=== PATIENT | female | born 1985 | race Caucasian/White ===

== ENCOUNTER 2019-11-07 07:47 | Emergency (ER) | payer MEDICAID ==
[~2019-11-07] VITALS: Ht 170.2 cm; Wt 73.3 kg
--- NOTE | 2019-11-07 08:11 | NUR ---
MANAGER ADMINISTRATIVE: PT TO ROOM FROM [facility]
--- NOTE | 2019-11-07 08:26 | NUR ---
THIS IS A 34 YO F W/ C/O SORE THROAT AND SWOLLEN NECK X2 DAYS. PT REPORTS "JUST NOT FEELING WELL FOR THE PAST 2 WEEKS" AND SORE THROAT HAS GOTTEN WORSE THE PAST 2 DAYS. DIFFICULTY SWALLOWING. DENIES SOB. PT CONVERSING IN FULL SENTENCES. VS STABLE. PT SITTING UP ON GURNEY W/ FAMILY AT BEDSIDE. CALL LIGHT IN REACH. DENIES FURTHER NEEDS AT THIS TIME.
[2019-11-07] MEDS ORDERED: HYDROmorphone 2 MG/ML, 1ML IVPush PRN (09:30)
[2019-11-07] MEDS ORDERED: ONDANSETRON 2MG/ML, 2ML IVPush ONE (09:30)
[2019-11-07 09:42] LABS: BASOPHILS # (AUTO) 0.05 x10^3/uL (0-0.1); BASOPHILS % (AUTO) 0 % (0-1); EOSINOPHILS # (AUTO) 0.02 x10^3/uL (0-0.4); EOSINOPHILS % (AUTO) 0 % (1-7); LYMPHOCYTES # (AUTO) 1.31 x10^3/uL (1-3.4); LYMPHOCYTES % (AUTO) 10 % (22-44); MD NO; MEAN CORPUSCULAR HEMOGLOBIN 31.8 pg (27.0-34.8); MEAN CORPUSCULAR VOLUME 93.8 fL (80-100); MEAN PLATELET VOLUME 8.4 fL (7.4-10.4); MONOCYTES # (AUTO) 0.84 x10^3/uL (0.2-0.8); MONOCYTES % (AUTO) 6 % (2-9); NEUTROPHILS # (AUTO) 10.91 x10^3/uL (1.8-6.8); NEUTROPHILS % (AUTO) 83 % (42-75); PLATELET COUNT 174 x10^3/uL (130-400); RED BLOOD COUNT 4.32 x10^6/uL (3.82-5.3); RED CELL DISTRIBUTION WIDTH 12.9 % (9.6-15.2)
[2019-11-07] MEDS ORDERED: ONDANSETRON 2MG/ML, 2ML ONE (09:47)
[2019-11-07] MEDS ORDERED: HYDROmorphone 1 MG/ML, 1ML INJ ONE (09:47)
[2019-11-07 09:52] VITALS: BP 128/85
[2019-11-07 09:52] LABS: ALBUMIN 4.2 g/dL (3.4-5.0); ANION GAP 7 mmol/L (5-15); CALCIUM 8.9 mg/dL (8.5-10.1); CHLORIDE 105 mmol/L (98-107); CREATININE 0.85 mg/dL (0.55-1.02)
--- NOTE | 2019-11-07 09:53 | NUR ---
PT MEDICATED PER EMAR. PLACED ON 2L NC. AWAITING CT.
--- NOTE | 2019-11-07 10:04 | NUR ---
PT TO CT.
--- NOTE | 2019-11-07 10:43 | NUR ---
PT REPORTS RELIEF OF PAIN AFTER MEDS. NOW 10/19.
[2019-11-07] MEDS ORDERED: OMNIPAQUE 350 MG/ML, 100ML BOTTLE ONE (11:39)
== END 2019-11-07 11:45 | disposition home or self-care (01) ==
LOC: ED 08:49
DX: M54.2 Cervicalgia (principal); K11.1 Hypertrophy of salivary gland
CPT/HCPCS: 36415; 70491; 80048; 82040; 85025; 86308; 86735; 87040; 96374; 96375; 99285; J1170; J2405; Q9967